=== PATIENT | male | born 1970 | race Caucasian/White ===

== ENCOUNTER 2016-06-18 23:18 | Emergency (ER) | payer SELFPAY ==
--- NOTE | 2016-06-19 | DIAGNOSTIC IMAGING REPORT ---
PROCEDURE: XR CHEST 1 VIEW INDICATION: CHEST PAIN TECHNIQUE: Portable AP view (). COMPARISON: None. FINDINGS: Allowing for overlying wires and electrodes, lungs are clear. Mild cardiomegaly. Mediastinum is normal. Mild dextroscoliosis and degenerative changes of the thoracic spine. IMPRESSION: 1. Mild cardiomegaly. 2. Otherwise negative chest.
--- NOTE | 2016-06-19 02:45 | ED ORDER SUMMARY ---
..... Patient: AURELIO VILLAREAL OrderSheet [facility] VisitID: [id number] [address] [place] [address] 46y, M Registration Date/Time: 06/18/2016 ORDER SHEET Weight: 84.3 kg (stated) Allergies: No Known Drug Allergy GENERAL ORDERS: Chest 1V Urgent (:06/18/2016 Bri THACKER) (Ack 23:30 IJurca ER Tech1) (23:32 RCollier R.N.) Cad Librarian (Continuous) (06/18/2016 Bri THACKER) (23:30 IJurca ER Tech1) Cardiac Panel Stat (06/18/2016 Bri THACKER) (Ack 23:30 IJurca ER Tech1) (23:32 RCollier R.N.) PT with INR Urgent (:06/18/2016 Bri THACKER) (Ack 23:30 IJurca ER Tech1) (23:32 RCollier R.N.) Oxygen (2 L/min) (NC) (:06/18/2016 Bri THACKER) (23:30 IJurca ER Tech1) Pulse oximeter (:06/18/2016 Bri THACKER) (23:30 IJurca ER Tech1) EKG - ER Stat (06/18/2016 Bri THACKER) (Ack 23:30 IJurca ER Tech1) (23:30 IJurca ER Tech1) Troponin-I Urgent (01:27 06/19/2016 HSoule verbal order read back to Bri THACKER) (Ack 1:28 IJurca ER Tech1) (Cancelled: Duplicate Order1:41 HSoule) Troponin-I Urgent (01:32 06/19/2016 Bri THACKER) (Ack 1:36 IJurca ER Tech1) (2:56 HSoule) MEDICATION ORDERS: Aspirin PO 325 mg (Do not crush or chew, NOW) (23:28 06/18/2016 Bri THACKER) (Ack 23:31 HSoule) (23:42 HSoule) IV FLUIDS: IV NS : initial bolus 1000 mL (1000 mL/hr), then none - (NOW) (23:28 06/18/2016 Bri THACKER) (Ack 23:31 HSoule) (23:42 HSoule) Toradol IV 30 mg (NOW) (:06/18/2016 Bri THACKER) (Ack 23:31 HSoule) (23:42 HSoule) Ativan IV 1 mg (HIGH ALERT MEDICATION, NOW) (:06/18/2016 Bri THACKER) (Ack 23:31 HSoule) (23:43 HSoule) ORDER SHEET NOTES: [Electronically signed by Mary Alice Lu (04:48 06/19/2016)] [Electronically signed by Garbielle Correa MD (19:19 06/25/2016)] [Electronically locked/signed by Mary Alice Lu (04:48 06/19/2016)]
--- NOTE | 2016-06-19 02:45 | ED CLINICAL REPORT ---
Clinical Report - Physicians/Mid Levels [facility] [address] [place] [address] 06/18/2016 23:19 Patient: AURELIO VILLAREAL Time Seen: 23:27. Arrived- By private vehicle. Historian- patient. HISTORY OF PRESENT ILLNESS Chief Complaint: CHEST PAIN. At its maximum, severity described as moderate. When seen in the E.D., severity described as moderate. It is described as located in the left upper quadrant of the abdomen and in the left scapular area. This started about 45 minutes ago and is still present. The patient cannot recall the circumstances at the onset. No nausea, vomiting, difficulty breathing or diaphoresis. (Pt states pain began at work. 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 Similar symptoms previously: None. Recent medical care: Not recently seen/assessed. REVIEW OF SYSTEMS No fever, chills, cough, pedal edema or calf pain. No fainting episodes, headache, sore throat, blurred vision or abdominal pain. No black stools, difficulty with urination, skin rash, enlarged lymph nodes or joint pain. No bloody stools. All systems otherwise negative, except as recorded above. PAST HISTORY Problems: Atrial Fibrillation. Fractured Metacarpal. Hypertension. Tetanus Status. Immunizations. Additional Surgeries: no known surgeries. Medications: Metoprolol Tartrate Oral. SOCIAL HISTORY Never smoker. No alcohol use or drug use. ADDITIONAL NOTES The nursing notes have been reviewed. PHYSICAL EXAM Vital Signs: 06/18/2016 23:21 BP: 137/94. HR: 74. RR: 16. O2 saturation: 96%. Temp: 97.6 F. Rasmussen-Asencio pain scale: 6/10. Have been reviewed. Appearance: Alert. Oriented X3. No acute distress. Eyes: Pupils equal, round and reactive to light. Eyes normal inspection. ENT: Nose normal. Neck: Normal inspection. Neck supple. CVS: Normal heart rate and rhythm. Heart sounds normal. Pulses normal. Respiratory: No respiratory distress. Breath sounds normal. (PT has some tenderness over his L ribs, though this does not entirely reproduce the pain. Pain does worsen with deep breaths and L arm movement.). Abdomen: Soft and nontender. Back: Normal external inspection. No CVA tenderness. Skin: Skin warm and dry. Normal skin color. No rash. Normal skin turgor. Extremities: Extremities exhibit normal ROM. No lower extremity edema. Neuro: Oriented X 3. No motor deficit. No sensory deficit. LABS, X-RAYS, AND EKG EKG: EKG time: (2327). No acute process. Rate: 79. Atrial fibrillation. Abnormal P waves. Normal QRS complex. Normal axis. Normal ST and T waves, QT and QTc. Prior EKG unavailable. The study has been interpreted contemporaneously by me. The study has been independently viewed by me. The EKG appears to be a good tracing. I agree with and confirm the computer reading of the EKG. Rhythm Strip #1: Time: (169). Rate= 84. Atrial fibrillation. Narrow QRS complexes. Irregularly irregular rhythm. No ectopy. Conduction normal. Normal ST segments and T waves. The study was interpreted by me. Chest X-ray: No acute disease. Normal lung markings present. Normal heart size. Mediastinum normal. Great vessels normal. Soft tissues normal. No infiltrate. No fracture. No bony lesion present. Views: AP (portable). Technique: good. The X-rays were independently viewed by me and interpreted contemporaneously by me. Prior films were not available for comparison. Laboratory Tests: Troponin-I: (JUAN: 06/19/2016 01:35) ( [facility] 06/19/2016 02:06) Final results Test Result Flag Units (Reference) TROPONIN I <0.05 L ng/mL (0.00-1.5) TROPONIN REFERENCE RANGE:<0.1 NEGATIVE0.1-1.5 INDETERMINANT>1.5 POSITIVE CBC w Diff: (JUAN: 06/18/2016 23:25) ( [facility] [place] 23:39) Final results Test Result Flag Units (Reference) WHITE BLOOD COUNT 6.9 K/uL (4.5-11.5) RED BLOOD COUNT 5.08 M/uL (4.50-5.90) HEMOGLOBIN 14.8 gm/dL (13.5-17.5) HEMATOCRIT 46.5 % (41.0-53.0) MEAN CELL VOLUME 92 fL (80-100) MEAN CORPUSCULAR HGB 29 pg (26-34) MEAN CORPUSCULAR HGB CONC 32 g/dL (31-37) RED CELL DISTRIBUTION WIDTH 14.1 % (11.6-14.8) PLATELET COUNT 173 K/uL (150-400) LYMPH % 36.5 % (25-40) MONO % 3.2 % (3-14) GRANULOCYTE % 60.3 PT with INR: (JUAN: 06/18/2016 23:25) ( MsgRcvd 06/19/2016 00:05) Final results Test Result Flag Units (Reference) INR 1.0 (0.8-1.2) Low Intensity Therapy: INR 1.5-2.0 PT range 18.5-23.1Mod.Intensity Therapy: INR 2.0-3.0 PT range 23.1-31.5High Intensity Therapy: INR 2.5-3.5 PT range 27.4-35.5High Intensity Therapy 2: INR 3.0-4.0 PT range 31.5-39.3 CHEM 13 PANEL: (JUAN: 06/18/2016 23:25) ( MsgRcvd 06/19/2016 00:05) Final results Test Result Flag Units (Reference) GLUCOSE 71 mg/dL (70-110) BUN 21 H mg/dL (7-18) CREATININE 1.0 mg/dL (0.6-1.3) Estimated GFR >60 mL/min Estimated GFR- >60 mL/min Note: Persistent reduction over 3 months in eGFR<60 mL/min/1.73 m2 defines CKD. Patients with eGFR values>=60 mL/min/1.73 m2 may also have CKD if evidence ofpersistent proteinuria. Additional information may be foundat www.kidney.org. SODIUM 143 mmol/L (136-145) POTASSIUM 4.4 mmol/L (3.5-5.1) CHLORIDE 105 mmol/L (98-107) CARBON DIOXIDE 30 mmol/L (21-32) CALCIUM 9.2 mg/dL (8.5-10.1) TOTAL PROTEIN 7.2 g/dL (6.4-8.2) ALBUMIN 4.2 g/dL (3.3-5.0) BILIRUBIN, TOTAL 1.0 mg/dL (0.0-1.0) ALKALINE PHOSPHATASE 61 U/L (46-116) AST (SGOT) 12 L U/L (15-37) ALT (SGPT) 21 U/L (12-78) MAGNESIUM 2.0 mg/dL (1.8-2.4) CPK 108 U/L (24-260) TROPONIN I <0.05 L ng/mL (0.00-1.5) TROPONIN REFERENCE RANGE:<0.1 NEGATIVE0.1-1.5 INDETERMINANT>1.5 POSITIVE . Pulse Oximetry: 06/18/2016 23:21 O2 saturation: 96%. (FIO2 - room air). Interpretation: normal. PROGRESS AND PROCEDURES Course of Care: PT was given IV fluids, Toradol, ASA, and Ativan. He was anxious on arrival, and sx did point to a mechanical source of pain as most likely; however, given the history of dysrhythmia, I did perform a cardiac work-up, which was negative, including a repeat troponin. Patient counseled in person regarding the patient's stable condition, test results, diagnosis and need for follow-up. Concerns were addressed. Old medical records reviewed. Disposition: Discharged. Condition: stable and improved. CLINICAL IMPRESSION Chest pain, with painful respirations .12 lead EKG performed. Anxiety reaction. INSTRUCTIONS Do not work today. (Your EKG, labs, and chest x-ray all look good. This and the nature of your pain indicate that your pain is most likely coming from the chest wall. There is no evidence of a "heart attack" tonight.). Warnings: GENERAL WARNINGS: Return or contact your physician immediately if your condition worsens or changes unexpectedly, if not improving as expected, or if other problems arise. Your Current Medications: CONTINUE TAKING THE FOLLOWING MEDICATIONS: Metoprolol Tartrate Oral : Tablet 50 mg, 1-1/2 tablets twice daily. Follow-up: Follow up with your doctor. Reason for referral: Discuss having a cardiac stress test done. Understanding of the discharge instructions verbalized by patient. (Electronically signed by Gabrielle Correa MD 06/25/2016 19:19)
--- NOTE | 2016-06-19 02:45 | ED CLINICAL REPORT ---
Clinical Report - Physicians/Mid Levels [facility] [address] [place] [address] 06/18/2016 23:19 Patient: AURELIO VILLAREAL Time Seen: 23:27. Arrived- By private vehicle. Historian- patient. HISTORY OF PRESENT ILLNESS Chief Complaint: CHEST PAIN. At its maximum, severity described as moderate. When seen in the E.D., severity described as moderate. It is described as located in the left upper quadrant of the abdomen and in the left scapular area. This started about 45 minutes ago and is still present. The patient cannot recall the circumstances at the onset. No nausea, vomiting, difficulty breathing or diaphoresis. (Pt states pain began at work. 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 Similar symptoms previously: None. Recent medical care: Not recently seen/assessed. REVIEW OF SYSTEMS No fever, chills, cough, pedal edema or calf pain. No fainting episodes, headache, sore throat, blurred vision or abdominal pain. No black stools, difficulty with urination, skin rash, enlarged lymph nodes or joint pain. No bloody stools. All systems otherwise negative, except as recorded above. PAST HISTORY Problems: Atrial Fibrillation. Fractured Metacarpal. Hypertension. Tetanus Status. Immunizations. Additional Surgeries: no known surgeries. Medications: Metoprolol Tartrate Oral. SOCIAL HISTORY Never smoker. No alcohol use or drug use. ADDITIONAL NOTES The nursing notes have been reviewed. PHYSICAL EXAM Vital Signs: 06/18/2016 23:21 BP: 137/94. HR: 74. RR: 16. O2 saturation: 96%. Temp: 97.6 F. Rasmussen-Asencio pain scale: 6/10. Have been reviewed. Appearance: Alert. Oriented X3. No acute distress. Eyes: Pupils equal, round and reactive to light. Eyes normal inspection. ENT: Nose normal. Neck: Normal inspection. Neck supple. CVS: Normal heart rate and rhythm. Heart sounds normal. Pulses normal. Respiratory: No respiratory distress. Breath sounds normal. (PT has some tenderness over his L ribs, though this does not entirely reproduce the pain. Pain does worsen with deep breaths and L arm movement.). Abdomen: Soft and nontender. Back: Normal external inspection. No CVA tenderness. Skin: Skin warm and dry. Normal skin color. No rash. Normal skin turgor. Extremities: Extremities exhibit normal ROM. No lower extremity edema. Neuro: Oriented X 3. No motor deficit. No sensory deficit. LABS, X-RAYS, AND EKG EKG: EKG time: (2327). No acute process. Rate: 79. Atrial fibrillation. Abnormal P waves. Normal QRS complex. Normal axis. Normal ST and T waves, QT and QTc. Prior EKG unavailable. The study has been interpreted contemporaneously by me. The study has been independently viewed by me. The EKG appears to be a good tracing. I agree with and confirm the computer reading of the EKG. Rhythm Strip #1: Time: (838). Rate= 84. Atrial fibrillation. Narrow QRS complexes. Irregularly irregular rhythm. No ectopy. Conduction normal. Normal ST segments and T waves. The study was interpreted by me. Chest X-ray: No acute disease. Normal lung markings present. Normal heart size. Mediastinum normal. Great vessels normal. Soft tissues normal. No infiltrate. No fracture. No bony lesion present. Views: AP (portable). Technique: good. The X-rays were independently viewed by me and interpreted contemporaneously by me. Prior films were not available for comparison. Laboratory Tests: Troponin-I: (JUAN: 06/19/2016 01:35) ( [facility] 06/19/2016 02:06) Final results Test Result Flag Units (Reference) TROPONIN I <0.05 L ng/mL (0.00-1.5) TROPONIN REFERENCE RANGE:<0.1 NEGATIVE0.1-1.5 INDETERMINANT>1.5 POSITIVE CBC w Diff: (JUAN: 06/18/2016 23:25) ( [facility] [place] 23:39) Final results Test Result Flag Units (Reference) WHITE BLOOD COUNT 6.9 K/uL (4.5-11.5) RED BLOOD COUNT 5.08 M/uL (4.50-5.90) HEMOGLOBIN 14.8 gm/dL (13.5-17.5) HEMATOCRIT 46.5 % (41.0-53.0) MEAN CELL VOLUME 92 fL (80-100) MEAN CORPUSCULAR HGB 29 pg (26-34) MEAN CORPUSCULAR HGB CONC 32 g/dL (31-37) RED CELL DISTRIBUTION WIDTH 14.1 % (11.6-14.8) PLATELET COUNT 173 K/uL (150-400) LYMPH % 36.5 % (25-40) MONO % 3.2 % (3-14) GRANULOCYTE % 60.3 PT with INR: (JAUN: 06/18/2016 23:25) ( MsgRcvd 06/19/2016 00:05) Final results Test Result Flag Units (Reference) INR 1.0 (0.8-1.2) Low Intensity Therapy: INR 1.5-2.0 PT range 18.5-23.1Mod.Intensity Therapy: INR 2.0-3.0 PT range 23.1-31.5High Intensity Therapy: INR 2.5-3.5 PT range 27.4-35.5High Intensity Therapy 2: INR 3.0-4.0 PT range 31.5-39.3 CHEM 13 PANEL: (JUAN: 06/18/2016 23:25) ( MsgRcvd 06/19/2016 00:05) Final results Test Result Flag Units (Reference) GLUCOSE 71 mg/dL (70-110) BUN 21 H mg/dL (7-18) CREATININE 1.0 mg/dL (0.6-1.3) Estimated GFR >60 mL/min Estimated GFR- >60 mL/min Note: Persistent reduction over 3 months in eGFR<60 mL/min/1.73 m2 defines CKD. Patients with eGFR values>=60 mL/min/1.73 m2 may also have CKD if evidence ofpersistent proteinuria. Additional information may be foundat www.kidney.org. SODIUM 143 mmol/L (136-145) POTASSIUM 4.4 mmol/L (3.5-5.1) CHLORIDE 105 mmol/L (98-107) CARBON DIOXIDE 30 mmol/L (21-32) CALCIUM 9.2 mg/dL (8.5-10.1) TOTAL PROTEIN 7.2 g/dL (6.4-8.2) ALBUMIN 4.2 g/dL (3.3-5.0) BILIRUBIN, TOTAL 1.0 mg/dL (0.0-1.0) ALKALINE PHOSPHATASE 61 U/L (46-116) AST (SGOT) 12 L U/L (15-37) ALT (SGPT) 21 U/L (12-78) MAGNESIUM 2.0 mg/dL (1.8-2.4) CPK 108 U/L (24-260) TROPONIN I <0.05 L ng/mL (0.00-1.5) TROPONIN REFERENCE RANGE:<0.1 NEGATIVE0.1-1.5 INDETERMINANT>1.5 POSITIVE . Pulse Oximetry: 06/18/2016 23:21 O2 saturation: 96%. (FIO2 - room air). Interpretation: normal. PROGRESS AND PROCEDURES Course of Care: PT was given IV fluids, Toradol, ASA, and Ativan. He was anxious on arrival, and sx did point to a mechanical source of pain as most likely; however, given the history of dysrhythmia, I did perform a cardiac work-up, which was negative, including a repeat troponin. Patient counseled in person regarding the patient's stable condition, test results, diagnosis and need for follow-up. Concerns were addressed. Old medical records reviewed. Disposition: Discharged. Condition: stable and improved. CLINICAL IMPRESSION Chest pain, with painful respirations .12 lead EKG performed. Anxiety reaction. INSTRUCTIONS Do not work today. (Your EKG, labs, and chest x-ray all look good. This and the nature of your pain indicate that your pain is most likely coming from the chest wall. There is no evidence of a "heart attack" tonight.). Warnings: GENERAL WARNINGS: Return or contact your physician immediately if your condition worsens or changes unexpectedly, if not improving as expected, or if other problems arise. Your Current Medications: CONTINUE TAKING THE FOLLOWING MEDICATIONS: Metoprolol Tartrate Oral : Tablet 50 mg, 1-1/2 tablets twice daily. Follow-up: Follow up with your doctor. Reason for referral: Discuss having a cardiac stress test done. Understanding of the discharge instructions verbalized by patient. (Electronically signed by Gabrielle Correa MD 06/25/2016 19:19)
--- NOTE | 2016-06-19 02:45 | ED ORDER SUMMARY ---
..... Patient: AURELIO VILLAREAL OrderSheet [facility] VisitID: [id number] [address] [place] [address] 46y, M Registration Date/Time: 06/18/2016 ORDER SHEET Weight: 84.3 kg (stated) Allergies: No Known Drug Allergy GENERAL ORDERS: Chest 1V Urgent (:06/18/2016 Bri THACKER) (Ack 23:30 IJurca ER Tech1) (23:32 RCollier R.N.) Tanning Solution Maker (Continuous) (06/18/2016 Bri THACKER) (23:30 IJurca ER Tech1) Cardiac Panel Stat (06/18/2016 Bri THACKER) (Ack 23:30 IJurca ER Tech1) (23:32 RCollier R.N.) PT with INR Urgent (:06/18/2016 Bri THACKER) (Ack 23:30 IJurca ER Tech1) (23:32 RCollier R.N.) Oxygen (2 L/min) (NC) (:06/18/2016 Bri THACKER) (23:30 IJurca ER Tech1) Pulse oximeter (:06/18/2016 Bri THACKER) (23:30 IJurca ER Tech1) EKG - ER Stat (06/18/2016 Bri THACKER) (Ack 23:30 IJurca ER Tech1) (23:30 IJurca ER Tech1) Troponin-I Urgent (01:27 06/19/2016 HSoule verbal order read back to Bri THACKER) (Ack 1:28 IJurca ER Tech1) (Cancelled: Duplicate Order1:41 HSoule) Troponin-I Urgent (01:32 06/19/2016 Bri THACKER) (Ack 1:36 IJurca ER Tech1) (2:56 HSoule) MEDICATION ORDERS: Aspirin PO 325 mg (Do not crush or chew, NOW) (23:28 06/18/2016 Bri THACKER) (Ack 23:31 HSoule) (23:42 HSoule) IV FLUIDS: IV NS : initial bolus 1000 mL (1000 mL/hr), then none - (NOW) (23:28 06/18/2016 Bri THACKER) (Ack 23:31 HSoule) (23:42 HSoule) Toradol IV 30 mg (NOW) (:06/18/2016 Bri THACKER) (Ack 23:31 HSoule) (23:42 HSoule) Ativan IV 1 mg (HIGH ALERT MEDICATION, NOW) (:06/18/2016 Bri THACKER) (Ack 23:31 HSoule) (23:43 HSoule) ORDER SHEET NOTES: [Electronically signed by Mary Alice Lu (04:48 06/19/2016)] [Electronically signed by Gabrielle Correa MD (19:19 06/25/2016)] [Electronically locked/signed by Mary Alice Lu (04:48 06/19/2016)]
--- NOTE | 2016-06-19 02:45 | ED NURSING NOTES ---
Clinical Report - Nurses [facility] [address] [place] [address] 06/18/2016 23:19 [id number] Triage time 23:21. Acuity: LEVEL 3. Chief Complaint: CHEST PAIN and (left sided, wraps around to left side back). Alert. No acute distress. --23:27 Clover Lima R.N. 23:21 06/18/16. BP: 137/94. HR: 74. RR: 16. O2 saturation: 96% on room air. Temp: 97.6 F (oral). Rasmussen-Asencio pain scale: 6/10. --23:27 Clover Lima R.N. Weight: 84.3 kg stated. Height/Length: 73 inches Per Patient. BMI: 24.5. --23:26 Clover Lima R.N. Medications Metoprolol Tartrate Oral (Tablet 50 mg) 1-1/2 tablets, twice daily. --23:22 Clover Lima R.N. The following entry was struck and corrected by Clover Lima R.N., 23:31 (06/18/16) Reason for correction - other(correction). <<STRICKEN ENTRY-- Metoprolol Tartrate Oral. --23:22 Clover Lima R.N. --END STRIKE>>. Allergies No Known Drug Allergy. --23:32 Clover Lima R.N. History Arrived by private vehicle. Historian: patient. Primary physician (Unknown). This started today. Onset. (about 45 minutes MUFFLER HAND). Treatment MUFFLER HAND: None. SOCIAL HX: Never smoker. No alcohol use or drug use. --23:27 Clover Lima R.N. PROBLEMS: Atrial Fibrillation. Fractured Metacarpal. Hypertension. --23:22 Clover Lima R.N. ADDITIONAL SURGERIES: no known surgeries. Interventions ID band on patient. To treatment room. --23:27 Clover Lima R.N. PHYSICAL ASSESSMENT To room via wheelchair. Patient gowned. GENERAL / NEURO / PSYCH: Alert. Oriented X 4. Appears anxious. HEENT: Mucous membranes are pink. RESPIRATORY: Respirations not labored. CVS: Capillary refill less than 2 seconds. SKIN: Skin is warm and dry. --23:28 Clover Lima R.N. NURSING PROGRESS NOTES Head of bed elevated. Two patient identifiers checked. Call light placed in reach. Side rails up x 1. Bed placed in lowest position. Brakes of bed on. --:28 Clover Lima R.N. Patient ready for evaluation- chart flagged. --23:28 Clover Lima R.N. EKG time: (23:28 PM). EKG was performed by a tech and shown to the ED physician. --23:30 Nahomi Veloz 23:26 06/18/2016 Site #1 started via IV in the right antecubital space with an 18g angiocath, with aseptic technique and good blood return; one attempt. Blood drawn: rainbow set. Labeled in the presence of the patient and sent to the lab. Saline lock flushed with 10 mL saline. --23:31 Mary Alice Lu Portable chest x-ray performed and shown to the ED physician. --23:32 Clover Lima R.N. 23:37 06/18/2016 Started bag #1 1000 mL IV Fluids IV NS (Saline); at 1000 mL/hr over 1 hour(s) via site #1. Allergies verified and confirmed 5 rights. IV patency established. IV site checked: no pain, redness, or swelling. IV flushed thoroughly pre- and post-medication administration. --23:42 Mary Alice Lu 23:42 06/18/2016 Toradol IVP 30 mg given over 1 minute(s) via site #1. Allergies verified and confirmed 5 rights. IV patency established. IV site checked: no pain, redness, or swelling. IV flushed thoroughly pre- and post-medication administration. IVP given by RN. --23:42 Mary Alice Lu 23:42 06/18/2016 Aspirin PO Tablets 325 mg given. Allergies verified and confirmed 5 rights. --23:42 Mary Alice Lu 23:43 06/18/2016 Ativan (LORazepam) IVP 1 mg given over 1 minute(s) via site #1. Allergies verified, confirmed 5 rights and sedative warning given to the patient. IV patency established. IV site checked: no pain, redness, or swelling. IV flushed thoroughly pre- and post-medication administration. IVP given by RN. --23:43 Mary Alice Lu ( Patient anxious. at bedside. Plan of care discussed with patient and spouse). --23:44 Mary Alice Lu 23:56 06/18/16. BP: 115/85. HR: 80. RR: 20. O2 saturation: 100% on room air. --23:56 Mary Alice Lu Reassessment after medication administered. Overall patient status- he states feels better. --00:11 Mary Alice Lu 00:35 06/19/16. BP: 114/82. HR: 71. RR: 20. O2 saturation: 100% on nasal cannula at 2 liters/minute. --00:36 Mary Alice Lu 01:27 06/19/16. BP: 117/74. HR: 74. RR: 20. O2 saturation: 100% on room air. Pain level now: 08/25. --01:29 Mary Alice Lu 00:45 06/19/2016 IV Fluids IV NS Discontinued: bag #1 completed. Total amount infused: 1000 mL. IV patency established. IV site checked: no pain, redness, or swelling. IV flushed thoroughly. --01:29 Mary Alice Lu ( Patient complaining that he cannot leave yet because he has pain. Patient stated pain was gone at discharge. Patient now stating he has pain again and they need to see the doctor). --03:12 Mary Alice Lu ( Provider notified. Provider at bedside to speak to patient). --03:13 Mary Alice Lu. DISPOSITION / DISCHARGE 03:43 06/19/16. BP: 118/83. HR: 79. RR: 20. O2 saturation: 100% on room air. Temp: 98 F (oral). Pain level now: 08/25. --03:45 Mary Alice Lu 03:40 06/19/2016 Site #1 removed upon discharge. Catheter intact. Bandaid applied. --03:45 Mary Alice Lu 03:45 06/19/16. Condition at departure: stable. No learning barriers present. Discharge instructions provided and reviewed with the patient and spouse. Patient and spouse verbalized understanding. Written instructions provided in Serbian. ( Follow up with PCP in three days.). The patient was discharged by the physician. He was discharged home and accompanied by spouse. He left the Emergency Department ambulatory and via private vehicle. Spouse driving. ( Patient states that he has pain with movement. Provider at bedside discussing with patient. Patient has been clear for discharge and is agreeable with following up with his PCP.). --03:45 Mary Alice Lu. Locked/Released at 06/19/2016 4:48 by Mary Alice Lu,
--- NOTE | 2016-06-25 19:19 | ED MAR SUMMARY ---
..... Medication Administration Record Formerly [facility] [address] [place] [address] Patient: AURELIO VILLAREAL Visit ID: [id number] 46y, M Weight: 84.3 kg Height/Length: 73 in BMI: 24.5 ALLERGIES: No Known Drug Allergy Start 23:37 06/18/2016 Mary Alice Lu,, Stop 00:45 06/19/2016 Mary Alice Lu, Medication Administered: IV NS (SALINE), Dose: IV Fluids over 1 hour(s), Rate: 1000 mL/hr, Dispensed: 1000 mL bag, Site: #1 right AC. Medication Ordered: IV NS : initial bolus 1000 mL (1000 mL/hr), then none - (NOW). Given :06/18/2016 Mary Alice Lu, Medication Administered: TORADOL [IVP], Dose: 30 mg IVP over 1 minute(s), Site: #1 right AC. Medication Ordered: Toradol IV 30 mg (NOW). Given :06/18/2016 Mary Alice Lu, Medication Administered: ASPIRIN [PO], Dose: 325 mg Tablets PO. Medication Ordered: Aspirin PO 325 mg (Do not crush or chew, NOW). Given :06/18/2016 Mary Alice Lu, Medication Administered: ATIVAN [IVP] (LORAZEPAM), Dose: 1 mg IVP over 1 minute(s), Site: #1 right AC. Medication Ordered: Ativan IV 1 mg (HIGH ALERT MEDICATION, NOW).
--- NOTE | 2016-06-25 19:19 | ED DISCHARGE INSTRUCTIONS ---
Patient: AURELIO VILLAREAL General Instructions [facility] VisitID: [id number] [place] [address] 46y, M Registration Date/Time: 06/18/2016 Chest pain, with painful respirations .12 lead EKG performed. Anxiety reaction. INSTRUCTIONS Do not work today. (Your EKG, labs, and chest x-ray all look good. This and the nature of your pain indicate that your pain is most likely coming from the chest wall. There is no evidence of a "heart attack" tonight.). Warnings: GENERAL WARNINGS: Return or contact your physician immediately if your condition worsens or changes unexpectedly, if not improving as expected, or if other problems arise. Your Current Medications: CONTINUE TAKING THE FOLLOWING MEDICATIONS: Metoprolol Tartrate Oral : Tablet 50 mg, 1-1/2 tablets twice daily. Follow-up: Follow up with your doctor. Reason for referral: Discuss having a cardiac stress test done. Understanding of the discharge instructions verbalized by patient. ADDITIONAL INFORMATION Chest Pain, Uncertain Cause Chest pain can happen for a number of reasons. Sometimes the cause can not be determined. If yourcondition does not seem serious, and your pain does not appear to be coming from your heart, your doctor may recommend watching it closely. Sometimes the signs of a serious problem take more time to appear. Therefore, watch for the warning signs listed below. Home care After your visit, follow these recommendations: Rest today and avoid strenuous activity. Take any prescribed medicine as directed. Follow-up care Follow up with your doctor or this facility as instructed or if you do not start to feel better within 24 hours. Call 911 Get immediate medical attention if any of the following occur: A change in the type of pain: if it feels different, becomes more severe, lasts longer, or begins to spread into your shoulder, arm, neck, jaw or back Shortness of breath or increased pain with breathing Weakness, dizziness, or fainting Rapid heart beat Get prompt medical attention Call your doctor right away if any of the following occur: Cough with dark colored sputum (phlegm) or blood Fever of 100.4F(38C) or higher, or as directed by your health care provider Swelling, pain or redness in one leg Stress Reaction Anxiety is the feeling we all get when we think something bad might happen. It is a normal response to stress and usually causes only a mild reaction. When anxiety becomes more severe, emotions may interfere with daily life. In some cases, you may not even be aware of what it is youre anxious about! During an anxiety reaction, you may feel like you are helpless, nervous, depressed or irritable. Your body may show signs of anxiety in many ways. You may experience dry mouth, shakiness, dizziness, weakness, trouble breathing, chest pressure, headache, nausea, diarrhea, tiredness, inability to sleep or sexual problems. Home Care: 1) Try to locate the sources of stress in your life. They may not be obvious! These may include: -- Daily hassles of life which pile up (traffic jams, missed appointments, car troubles, etc.) -- Major life changes, both good (new baby, job promotion) and bad (loss of job, loss of loved one) -- Overload: feeling that you have too many responsibilities and can't take care of all of them at once -- Feeling helpless, feeling that your problems are beyond what youre able to solve 2) Notice how your body reacts to stress. Learn to listen to your body signals. This will help you take action before the stress becomes severe. 3) When you can, do something about the source of your stress. (Avoid hassles, limit the amount of change that happens in your life at one time and take a break when you feel overloaded). 4) Unfortunately, many stressful situations cannot be avoided. It is necessary to learn HOW TO MANAGE STRESS better. There are many proven methods that will reduce your anxiety. These include simple things like exercise, good nutrition and adequate rest. Also, there are certain techniques that are helpful: relaxation and breathing exercises, visualization, biofeedback and meditation. For more information about this, consult your doctor or go to a local bookstore and review the many books and tapes available on this subject. Follow Up If you feel that your anxiety is not responding to self-help measures, contact your doctor or make an appointment with a counselor. Get Prompt Medical Attention if any of the following occur: -- Your symptoms get worse -- Chest pain or trouble breathing -- Severe headache not relieved by rest and mild pain reliever -- Rapid or irregular heartbeat, fainting You have been given the following additional information: Chest Pain, Uncertain Cause Anxiety Reaction Do not work today. (Electronically signed by Gabrielle Correa MD 06/25/2016 19:19)
--- NOTE | 2016-06-25 19:19 | ED MED RECONCILIATION SUMMARY ---
Patient: AURELIO VILLAREAL Medication Reconciliation Report [facility] VisitID: [id number] [address] [place] [address] 46y, M Registration Date/Time: 06/18/2016 Weight: 84.3 kg Height/Length: 73 in. BMI: 24.5 ALLERGIES: No Known Drug Allergy The patient's Home Medications are listed below: CONTINUE TAKING THE FOLLOWING MEDICATIONS: Metoprolol Tartrate Oral (50 mg) 1-1/2 tablets, twice daily The source(s) of the original Home Medication information: Not obtained. The following Medications were given to the patient in the Emergency Department: IV NS IV Fluids bolus 0, then 1000 mL/hr, administered: 06/18/2016 11:37:00 PM Toradol [IVP] IVP 30 mg, administered: 06/18/2016 11:42:00 PM Aspirin [PO] PO 325 mg, administered: 06/18/2016 11:42:00 PM Ativan [IVP] IVP 1 mg, administered: 06/18/2016 11:43:00 PM The following Medications were prescribed to the patient: None.
--- NOTE | 2016-06-25 19:19 | ED MAR SUMMARY ---
..... Medication Administration Record [facility] [address] [place] [address] Patient: AURELIO VILLAREAL Visit ID: [id number] 46y, M Weight: 84.3 kg Height/Length: 73 in BMI: 24.5 ALLERGIES: No Known Drug Allergy Start 23:37 06/18/2016 Mary Alice Lu,, Stop 00:45 06/19/2016 Mary Alice Lu, Medication Administered: IV NS (SALINE), Dose: IV Fluids over 1 hour(s), Rate: 1000 mL/hr, Dispensed: 1000 mL bag, Site: #1 right AC. Medication Ordered: IV NS : initial bolus 1000 mL (1000 mL/hr), then none - (NOW). Given :06/18/2016 Mary Alice Lu, Medication Administered: TORADOL [IVP], Dose: 30 mg IVP over 1 minute(s), Site: #1 right AC. Medication Ordered: Toradol IV 30 mg (NOW). Given :06/18/2016 Mary Alice Lu, Medication Administered: ASPIRIN [PO], Dose: 325 mg Tablets PO. Medication Ordered: Aspirin PO 325 mg (Do not crush or chew, NOW). Given :06/18/2016 Mary Alice Lu, Medication Administered: ATIVAN [IVP] (LORAZEPAM), Dose: 1 mg IVP over 1 minute(s), Site: #1 right AC. Medication Ordered: Ativan IV 1 mg (HIGH ALERT MEDICATION, NOW).
--- NOTE | 2016-06-25 19:19 | ED MED RECONCILIATION SUMMARY ---
Patient: AURELIO VILLAREAL Medication Reconciliation Report [facility] VisitID: [id number] [address] [place] [address] 46y, M Registration Date/Time: 06/18/2016 Weight: 84.3 kg Height/Length: 73 in. BMI: 24.5 ALLERGIES: No Known Drug Allergy The patient's Home Medications are listed below: CONTINUE TAKING THE FOLLOWING MEDICATIONS: Metoprolol Tartrate Oral (50 mg) 1-1/2 tablets, twice daily The source(s) of the original Home Medication information: Not obtained. The following Medications were given to the patient in the Emergency Department: IV NS IV Fluids bolus 0, then 1000 mL/hr, administered: 06/18/2016 11:37:00 PM Toradol [IVP] IVP 30 mg, administered: 06/18/2016 11:42:00 PM Aspirin [PO] PO 325 mg, administered: 06/18/2016 11:42:00 PM Ativan [IVP] IVP 1 mg, administered: 06/18/2016 11:43:00 PM The following Medications were prescribed to the patient: None.
== END 2016-06-19 03:00 | disposition home or self-care (01) ==
LOC: ED SRH 23:18
DX: R07.1 Chest pain on breathing (principal); F41.1 Generalized anxiety disorder; I10 Essential (primary) hypertension
CPT/HCPCS: 90074; 90100; 90616; 92610; 92720; 94060; 95059